=== PATIENT | male | born 1965 | race Caucasian/White ===

== ENCOUNTER → 2018-08-31 08:16 | Outpatient (CLI) | payer BC, SELFPAY ==
[2018-08-31 13:00] LABS: ALB/GLOB Ratio 0.9 RATIO (0.9-2.4); AST(SGOT) 20 U/L (15-37); Alanine Aminotransfer ALT/SGPT 37 U/L (16-61); Albumin, Serum 3.7 g/dL (3.2-5.0); Alkaline Phosphatase 65 U/L (45-117); Anion Gap 7 (5-15); BUN 11 mg/dL (7-18); BUN/Creat Ratio 9.8 RATIO (10-20); Calcium,Total 8.6 mg/dL (8.5-10.1); Chloride 104 mmol/L (98-107); Cholesterol 243 mg/dL (200); Creatinine, Serum 1.12 mg/dL (0.70-1.30); EST Glomerular Filtration Rate 73 mL/min (>60); Est Glom Filt Rate - Afr Amer 88 mL/min (>60); Globulin 3.9 g/dL (2.2-4.2); Glucose 117 mg/dL (74-106); High Density Lipoprotein 36 mg/dL; Potassium 3.6 mmol/L (3.5-5.1); Protein, Total 7.6 g/dL (6.4-8.2); Sodium Level 138 mmol/L (136-145); Triglycerides 179 mg/dL; Very Low Density Lipoprotein 36 mg/dL (5-40)
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
== END ==
PROVIDERS: Family Provider Family Medicine; PCP Family Medicine; Visit Provider Family Medicine
DX: B35.1 Tinea unguium (principal); Z82.49 Family history of ischemic heart disease and other diseases of the circulatory system
CPT/HCPCS: 36415; 80053; 80061

== ENCOUNTER → 2018-11-24 08:29 | Outpatient (CLI) | payer BC, SELFPAY ==
[2018-11-24 12:38] LABS: Cholesterol 151 mg/dL (200); High Density Lipoprotein 35 mg/dL; Triglycerides 112 mg/dL; Very Low Density Lipoprotein 22 mg/dL (5-40)
== END ==
LOC: LAB.FUTURE 09-07 06:01 → BFHLAB 09-15 09:13
PROVIDERS: Family Provider Family Medicine; PCP Family Medicine; Visit Provider Family Medicine
DX: E78.5 Hyperlipidemia, unspecified (principal)
CPT/HCPCS: 36415; 80061

== ENCOUNTER → 2019-09-08 08:26 | Outpatient (CLI) | payer BC, SELFPAY ==
[2018-04-01 16:09] VITALS: BMI 26.2
[2019-09-08 12:44] LABS: Absolute Lymphocyte Count 1.41 X10^3/uL (0.83-4.51); Absolute Neutrophil Count 2.9 X10^3/uL (2.0-7.7); Basophil# 0.03 X10^3/uL; Basophil% 0.6 % (0-1); Eosinophil# 0.18 X10^3/uL; Eosinophils% 3.6 % (0-5); Hematocrit 47.2 % (40-54); Hemoglobin 15.8 g/dL (13.0-16.5); Lymphocyte # 1.41 X10^3/ul (4.0); Mean Corp Hgb Conc 33.5 g/dL (32-36); Mean Corpuscular Hgb 31.9 pg (27.0-32.0); Mean Corpuscular Volume 95.2 fL (80-94); Mean Platelet Vol. 11.1 fl (6.2-12.0); Monocyte# 0.55 X10^3/uL; Monocyte% 10.9 % (0-10); NRBC Flagged by Analyzer 0 % (0-5); Neutrophil # 2.85 X10^3/uL (2.7-7.7); Neutrophil % 56.5 % (47-70); Platelet Count 230 K/mm3 (150-450); RBC Distribution Width CV 12.7 % (11.6-14.6); RBC Distribution Width SD 43.9 fl (35.1-43.9); Red Blood Count 4.96 M/mm3 (4.6-6.2)
[2019-09-08 13:21] LABS: AST(SGOT) 43 U/L (15-37); Alanine Aminotransfer ALT/SGPT 81 U/L (16-61); Albumin, Serum 3.8 g/dL (3.2-5.0); Alkaline Phosphatase 62 U/L (45-117); Anion Gap 3 (5-15); BUN 14 mg/dL (7-18); BUN/Creat Ratio 12.5 RATIO (10-20); Calcium,Total 8.5 mg/dL (8.5-10.1); Chloride 106 mmol/L (98-107); Cholesterol 156 mg/dL (200); Creatinine, Serum 1.12 mg/dL (0.70-1.30); EST Glomerular Filtration Rate 72 mL/min (>60); Est Glom Filt Rate - Afr Amer 88 mL/min (>60); Globulin 3.8 g/dL (2.2-4.2); Glucose 114 mg/dL (74-106); High Density Lipoprotein 34 mg/dL; Potassium 3.9 mmol/L (3.5-5.1); Protein, Total 7.6 g/dL (6.4-8.2); Sodium Level 139 mmol/L (136-145); Triglycerides 151 mg/dL; Very Low Density Lipoprotein 30 mg/dL (5-40)
== END ==
PROVIDERS: Family Provider Family Medicine; PCP Family Medicine; Visit Provider Family Medicine
DX: Z00.01 Encounter for general adult medical examination with abnormal findings (principal); E78.5 Hyperlipidemia, unspecified; K44.9 Diaphragmatic hernia without obstruction or gangrene; K21.0 Gastro-esophageal reflux disease with esophagitis
CPT/HCPCS: 36415; 80053; 80061; 85025

== ENCOUNTER → 2020-02-21 | Outpatient (CLI) | payer BC, SELFPAY ==
--- NOTE | 2020-02-21 09:27 | RAD_ITS ---
STUDY: X-RAY - ESOPHAGUS (BARIUM SWALLOW) WITH FLUOROSCOPY REASON FOR EXAM: Male, 55 years old. Dysphagia -- feels like food gets stuck mid to distal esophagus -- x 1 year TECHNIQUE: 21 view(s) of the esophagus were obtained following swallowing of barium. FLUOROSCOPY TIME (if supplied): (0:36) minutes/seconds COMPARISON: None. FINDINGS: There is no demonstrated esophageal foreign body. There is no demonstrated stricture or mucosal abnormality. Normal gastroesophageal junction, without a demonstrated hiatal hernia. The patient ingested a 12 mm tablet of barium without any difficulty. Normal visualized aortic arch and descending thoracic aorta. Normal visualized pulmonary parenchyma. Normal visualized osseous structures of the thorax. RAD/Esophagus Single Contrast IMPRESSION: Normal plain film x-ray examination (barium swallow) of the esophagus. Electronically Signed: Roland Burdick, at 10:11 EDT , Service support ,
== END | disposition home or self-care (01) ==
LOC: RAD 09:21
PROVIDERS: PCP Family Medicine; Referring Provider Family Medicine; Visit Provider Family Medicine
DX: R13.10 Dysphagia, unspecified (principal)
CPT/HCPCS: 74220

== ENCOUNTER → 2020-03-29 | Outpatient (CLI) | payer BC, SELFPAY | END | disposition home or self-care (01) | LOC: MTDU 17:35 | PROVIDERS: PCP Family Medicine; Referring Provider Internal Medicine Gastroenterology; Visit Provider Internal Medicine Gastroenterology | DX: Z11.59 Encounter for screening for other viral diseases (principal) | CPT/HCPCS: 87635; G2023; U0003 ==

== ENCOUNTER → 2022-02-21 | Outpatient (CLI) | payer BC, SELFPAY ==
[2022-02-23 18:06] LABS: Endomysial Antibody IgA Negative (Negative)
[2022-02-24 16:22] LABS: Immunoglobulin A 469 mg/dL (90-386); t-Transglutaminase IgA <2 U/mL (0-3)
== END | disposition home or self-care (01) ==
LOC: MTLAB 08:37
PROVIDERS: PCP Family Medicine; Referring Provider Family Medicine; Visit Provider Family Medicine
DX: K21.9 Gastro-esophageal reflux disease without esophagitis (principal)
CPT/HCPCS: 36415; 82784; 83516; 86255

== ENCOUNTER → 2022-08-27 | Outpatient (CLI) | payer BC, SELFPAY ==
--- NOTE | 2022-08-27 13:55 | ECHOD_ITS ---
Reason For Study: MURMUR Procedure This was a 2D Doppler, Color Flow transthoracic echocardiogram. Exam performed in department. Left Ventricle Normal LV size. Moderate eccentric left ventricular hypertrophy. Left ventricular systolic function is normal. The estimated ejection fraction is 65 %. Mid cavitary dynamic gradient 75 mm/Hg. No regional wall motion abnormalities noted. Right Ventricle Normal RV size. Normal systolic function. Atria Normal left atrium. Normal right atrium. Mitral Valve Normal mitral valve. Mild (1+) eccentric mitral valve insufficiency. Tricuspid Valve Normal tricuspid valve. Aortic Valve Trisinus/trileaflet aortic valve. Mild (1+) aortic valve insufficiency. Pulmonic Valve Normal pulmonic valve. Great Vessels Normal aortic root. The pulmonary artery is normal size. Normal inferior vena cava. Pericardium/Pleural No pericardial effusion. MMode/2D Measurements & Calculations LVIDd: 4.9 cm IVSd: 1.1 cm Ao root diam: 3.2 cm LVIDs: 2.7 cm LVPWd: 1.5 cm RVDd: 3.1 cm FS: 44.3 % LAV(MOD-bp): 67.1 ml LVAd ap4: 30.9 cm2 LVAd ap2: 31.9 cm2 LAV(MOD-bp) Indexed: 33.8 ml/m2 LVLd ap4: 10.1 cm LVLd ap2: 9.6 cm LAV(MOD-sp2): 58.3 ml EDV(MOD-sp4): 80.8 ml EDV(MOD-sp2): 87.1 ml LAV(MOD-sp4): 70.3 ml EDV(sp4-el): 80.7 ml EDV(sp2-el): 89.5 ml LVAs ap4: 17.0 cm2 LVAs ap2: 13.8 cm2 LVLs ap4: 8.8 cm LVLs ap2: 7.4 cm ESV(MOD-sp4): 32.4 ml ESV(MOD-sp2): 23.0 ml ESV(sp4-el): 27.8 ml ESV(sp2-el): 21.9 ml EF(MOD-sp4): 60.0 % EF(MOD-sp2): 73.6 % EF(sp4-el): 65.5 % SV(MOD-sp4): 48.5 ml SV(MOD-sp2): 64.1 ml SV(sp4-el): 52.9 ml LA dimension(2D): 3.8 cm LA A4 area: 22.0 cm2 RA A4 area: 15.1 cm2 Time Measurements MV dec time: 0.25 sec Doppler Measurements & Calculations MV E max peter: 81.9 cm/sec Lat Peak E' Peter: 11.0 cm/sec Med Peak E' Peter: 6.4 cm/sec MV A max peter: 70.9 cm/sec E/E' lat: 7.5 E/E' med: 12.8 MV E/A: 1.2 MV V2 max: 77.3 cm/sec MV dec slope: 331.9 cm/sec2 Ao V2 max: 246.4 cm/sec MV max P.4 mmHg Ao max P.4 mmHg MV V2 mean: 50.7 cm/sec Ao V2 mean: 160.3 cm/sec MV mean P.2 mmHg Ao mean P.4 mmHg MV V2 VTI: 25.7 cm Ao V2 VTI: 44.1 cm PA V2 max: 115.6 cm/sec PA V2 mean: 80.2 cm/sec ECHO/Echo Complete Interpretation Summary Normal LV size. Moderate eccentric left ventricular hypertrophy. Left ventricular systolic function is normal. The estimated ejection fraction is 65 %. Mid cavitary dynamic gradient 75 mm/Hg. Ordering Physician: Evangelina Abdul Referring Physician: Evangelina Abdul Performed By: Amanda Petty RCS
== END | disposition home or self-care (01) ==
LOC: CVS 13:54
PROVIDERS: PCP Family Medicine; Referring Provider Family Medicine; Visit Provider Family Medicine
DX: R01.1 Cardiac murmur, unspecified (principal)
CPT/HCPCS: 93306

== ENCOUNTER → 2024-01-21 | Outpatient (CLI) | payer OTHER, SELFPAY ==
--- NOTE | 2024-01-21 12:52 | ART_ITS ---
Reason For Study: ABNORMAL PVD SCREENING Left Segmental Pressures Left brachial= 154mmHg. Left posterior tibial artery = 179mmHg. Left dorsalis pedis artery = 168mmHg. The left posterior tibial artery waveforms are triphasic. The left dorsalis pedis waveforms are triphasic. Right Segmental Pressures Right brachial= 151mmHg. Right posterior tibial artery = 171mmHg. Right dorsalis pedis artery = 181mmHg. The right posterior tibial artery waveforms are triphasic. The right dorsalis pedis waveforms are triphasic. Indices The right resting ankle brachial index is 1.18. The right ankle brachial index by the posterior tibial artery is 1.11. The right ankle brachial index by the dorsalis pedis is 1.18. The left resting ankle brachial index is 1.16. The left ankle brachial index by the posterior tibial artery is 1.16. The left ankle brachial index by the dorsalis pedis is 1.09. VL/Ankle Brachial Index Interpretation Summary Right FAWAD 1.18, normal. Doppler/PVR waveforms of the right ankle normal at rest . Left FAWAD 1.16, normal. Doppler/PVR waveforms of the left ankle normal at rest. Ordering Physician: Evangelina Abdul Referring Physician: Evangelina Abdul Performed By: Sandra Taveras RVT, RDCS
== END | disposition home or self-care (01) ==
LOC: CVS 12:47
PROVIDERS: PCP Family Medicine; Referring Provider Family Medicine; Visit Provider Family Medicine
DX: I73.9 Peripheral vascular disease, unspecified (principal)
CPT/HCPCS: 93922

== ENCOUNTER → 2024-08-03 | Outpatient (CLI) | payer OTHER, SELFPAY ==
[2024-08-03 12:19] LABS: Absolute Lymphocyte Count 1.74 X10^3/uL (0.83-4.51); Absolute Neutrophil Count 2.6 X10^3/uL (2.0-7.7); Basophil# 0.05 X10^3/uL; Eosinophil# 0.12 X10^3/uL; Eosinophils% 2.3 % (0-5); Hematocrit 45.3 % (40-54); Hemoglobin 15.4 g/dL (13.0-16.5); Lymphocyte # 1.74 X10^3/ul (0.83-4.51); Lymphocyte % 33.1 % (19-41); Mean Corpuscular Hgb 32.1 pg (27.0-32.0); Mean Corpuscular Volume 94.4 fL (80-94); Mean Platelet Vol. 11.5 fl (6.2-12.0); Monocyte% 13.3 % (0-10); NRBC Flagged by Analyzer 0 % (0-5); Neutrophil # 2.62 X10^3/uL (2.7-7.7); Neutrophil % 49.9 % (47-70); Platelet Count 231 K/mm3 (150-450); RBC Distribution Width CV 12.8 % (11.6-14.6); RBC Distribution Width SD 44.4 fl (35.1-43.9); White Blood Count 5.3 K/mm3 (4.4-11.0)
[2024-08-03 12:53] LABS: AST(SGOT) 18 U/L (15-37); Alanine Aminotransfer ALT/SGPT 25 U/L (16-61); Albumin, Serum 3.6 g/dL (3.2-5.0); Alkaline Phosphatase 61 U/L (45-117); Anion Gap 6 (5-15); BUN 14 mg/dL (7-18); BUN/Creat Ratio 13.6 RATIO (10-20); Calcium,Total 8.9 mg/dL (8.5-10.1); Chloride 107 mmol/L (98-107); Cholesterol 238 mg/dL (200); Creatinine, Serum 1.03 mg/dL (0.70-1.30); EST Glomerular Filtration Rate 78 mL/min (>60); Est Glom Filt Rate - Afr Amer 95 mL/min (>60); Globulin 3.5 g/dL (2.2-4.2); Glucose 120 mg/dL (74-106); High Density Lipoprotein 37 mg/dL; PSA,Total - Annual Screen 1.48 ng/mL (0.00-4.00); Protein, Total 7.1 g/dL (6.4-8.2); Sodium Level 140 mmol/L (136-145); Triglycerides 184 mg/dL; Very Low Density Lipoprotein 37 mg/dL (5-40)
== END | disposition home or self-care (01) ==
LOC: BFHLAB 08:14
PROVIDERS: PCP Family Medicine; Referring Provider Family Medicine; Visit Provider Family Medicine
DX: Z00.00 Encounter for general adult medical examination without abnormal findings (principal); K21.9 Gastro-esophageal reflux disease without esophagitis; E78.5 Hyperlipidemia, unspecified
CPT/HCPCS: 36415; 80053; 80061; 84153; 85025; G0103

== ENCOUNTER → 2025-05-25 | Outpatient (CLI) | payer OTHER, SELFPAY ==
[2025-05-25 10:40] LABS: Hematocrit 44.3 % (40-54); Hemoglobin 15.2 g/dL (13.0-16.5); Immature Granulocytes Count 0.020 X10^3/uL (0.0-0.0); Mean Corp Hgb Conc 34.3 g/dL (32-36); Mean Corpuscular Volume 91.5 fL (80-94); Mean Platelet Vol. 11.2 fl (6.2-12.0); NRBC Flagged by Analyzer 0 % (0-5); Platelet Count 221 K/mm3 (150-450); RBC Distribution Width CV 12.5 % (11.6-14.6); RBC Distribution Width SD 41.3 fl (35.1-43.9); Red Blood Count 4.84 M/mm3 (4.6-6.2); White Blood Count 5.4 K/mm3 (4.4-11.0)
[2025-05-25 11:39] LABS: AST(SGOT) 25 U/L (<=37); Alanine Aminotransfer ALT/SGPT 29 U/L (<=46); Albumin, Serum 4.1 g/dL (3.4-4.8); Alkaline Phosphatase 62 U/L (40-129); Anion Gap 11 (5-15); BUN 17 mg/dL (4-19); BUN/Creat Ratio 16.4 RATIO (10-20); Calcium,Total 9.3 mg/dL (7.6-11.0); Carbon Dioxide 23.7 mmol/L (21.0-32.0); Chloride 105 mmol/L (98-108); Cholesterol 166 mg/dL (<=200); Globulin 3.0 g/dL (2.2-4.2); Glucose 117 mg/dL (70-99); Low Density Lipoprotein Calc. 109 mg/dL; Potassium 3.9 mmol/L (3.3-5.1); Triglycerides 93 mg/dL; Very Low Density Lipoprotein 19 mg/dL (5-40); cholesterol:hdl ratio screen 4.30
== END | disposition home or self-care (01) ==
LOC: MTLAB 08:30
PROVIDERS: PCP Family Medicine; Referring Provider Family Medicine; Visit Provider Family Medicine
DX: Z00.00 Encounter for general adult medical examination without abnormal findings (principal); K21.9 Gastro-esophageal reflux disease without esophagitis; E78.5 Hyperlipidemia, unspecified
CPT/HCPCS: 36415; 80053; 80061; 85025

== ENCOUNTER → 2025-08-15 | Outpatient (CLI) | payer OTHER, SELFPAY ==
[2025-08-15 14:20] LABS: AST(SGOT) 31 U/L (<=37); Alanine Aminotransfer ALT/SGPT 44 U/L (<=46); Albumin, Serum 4.1 g/dL (3.4-4.8); Alkaline Phosphatase 72 U/L (40-129); Anion Gap 9 (5-15); BUN 7 mg/dL (4-19); BUN/Creat Ratio 7.6 RATIO (10-20); Calcium,Total 8.9 mg/dL (7.6-11.0); Carbon Dioxide 27.4 mmol/L (21.0-32.0); Chloride 104 mmol/L (98-108); Cholesterol 141 mg/dL (<=200); Globulin 3.0 g/dL (2.2-4.2); Glucose 103 mg/dL (70-99); Low Density Lipoprotein Calc. 87 mg/dL; Potassium 4.1 mmol/L (3.3-5.1); Triglycerides 101 mg/dL; Very Low Density Lipoprotein 20 mg/dL (5-40); cholesterol:hdl ratio screen 4.06
== END | disposition home or self-care (01) ==
LOC: LAB 13:10
PROVIDERS: PCP Family Medicine; Referring Provider Internal Medicine Cardiovascular Disease; Visit Provider Internal Medicine Cardiovascular Disease
DX: R93.89 Abnormal findings on diagnostic imaging of other specified body structures (principal); I42.2 Other hypertrophic cardiomyopathy; I25.10 Atherosclerotic heart disease of native coronary artery without angina pectoris; E78.5 Hyperlipidemia, unspecified; K21.9 Gastro-esophageal reflux disease without esophagitis
CPT/HCPCS: 36415; 80053; 80061; 84443

== ENCOUNTER → 2025-09-07 | Outpatient (CLI) | payer OTHER, SELFPAY ==
--- NOTE | 2025-09-07 06:26 | ECHOD_ITS ---
Reason For Study Reason For Study: Abn EKG Procedure This was a 2D Doppler, Color Flow transthoracic echocardiogram. Exam performed in department. Left Ventricle Normal LV size. Moderate concentric left ventricular hypertrophy. Left ventricular systolic function is normal. The left ventricular ejection fraction is 55 %. Resting LV gradient 16 mmHg. Valsalva LV gradient 75 mmHg. The global longitudinal strain = -14.3% (abnormal). Apical sparing pattern on LV Strain. No regional wall motion abnormalities noted. Right Ventricle Normal RV size. Normal systolic function. Atria Normal left atrium. Normal right atrium. Mitral Valve Normal mitral valve. Chordal systolic anterior motion of the mitral valve. Mild (1+) mitral valve insufficiency. Tricuspid Valve Normal tricuspid valve. Trivial tricuspid valve insufficiency. Aortic Valve Trisinus/trileaflet aortic valve. Premature systolic leaflet closure on m-mode. Trivial aortic valve insufficiency. Pulmonic Valve Normal pulmonic valve. Great Vessels Normal sized aortic root. Pericardium/Pleural No pericardial effusion. MMode/2D Measurements & Calculations LVIDd: 4.4 cm IVSd: 1.4 cm Ao root diam: 3.4 cm LVIDs: 2.3 cm LVPWd: 1.4 cm RVDd: 3.5 cm FS: 47.0 % LAV(MOD-bp): 42.7 ml LVAd ap4: 29.4 cm2 LVAd ap2: 28.9 cm2 LAV(MOD-bp) Indexed: 20.7 ml/m2 LVLd ap4: 9.6 cm LVLd ap2: 9.2 cm LAV(MOD-sp2): 45.0 ml EDV(MOD-sp4): 76.3 ml EDV(MOD-sp2): 78.8 ml LAV(MOD-sp4): 37.4 ml EDV(sp4-el): 76.7 ml EDV(sp2-el): 76.7 ml LVAs ap4: 18.5 cm2 LVAs ap2: 18.1 cm2 LVLs ap4: 8.3 cm LVLs ap2: 8.6 cm ESV(MOD-sp4): 36.1 ml ESV(MOD-sp2): 34.9 ml ESV(sp4-el): 34.9 ml ESV(sp2-el): 32.3 ml EF(MOD-sp4): 52.7 % EF(MOD-sp2): 55.8 % EF(sp4-el): 54.5 % SV(MOD-sp4): 40.2 ml SV(MOD-sp2): 43.9 ml EDV(MOD-bp): 78.8 ml SI(MOD-sp4): 19.5 ml/m2 SI(MOD-sp2): 21.3 ml/m2 ESV(MOD-bp): 35.2 ml EF(MOD-bp): 55.4 % SV(sp4-el): 41.8 ml LA dimension(2D): 4.0 cm LA A4 area: 15.6 cm2 RA A4 area: 15.0 cm2 TAPSE: 1.9 cm Time Measurements MV dec time: 0.23 sec Doppler Measurements & Calculations MV E max peter: 74.8 cm/sec Lat Peak E' Peter: 6.7 cm/sec Med Peak E' Peter: 6.2 cm/sec MV A max peter: 90.2 cm/sec E/E' lat: 11.2 E/E' med: 12.1 MV E/A: 0.83 Ao V2 max: 193.3 cm/sec PA V2 max: 112.5 cm/sec MV dec slope: 326.6 cm/sec2 Ao max P.9 mmHg Ao V2 mean: 145.8 cm/sec Ao mean P.3 mmHg Ao V2 VTI: 37.5 cm ECHO/Echo Complete Interpretation Summary The left ventricular ejection fraction is 55 %. Moderate concentric left ventricular hypertrophy. Valsalva LV gradient 75 mmHg. Chordal systolic anterior motion of the mitral valve. Mild (1+) mitral valve insufficiency. Recommend cardiac MRI for further evaluation for HOCM. Ordering Physician: Heidi Chery Referring Physician: Evangelina Abdul Performed By: Isabel Lara RDCS
--- OUTSIDE RECORDS SUMMARY | 2025-09-07 06:26 | XMS RPT_ITS | CCD ---
Author Organization [facility] Care Team Providers Care Title Search Manager Name Role Phone RENEA CARCAMO Unavailable Unavailable RACHEL BENTON Unavailable Unavailable Dr. Evangelina Abdul Primary Care Provider [phone] Evangelina Abdul Referring Provider [phone] Dr. Patel Liriano Attending Provider [phone] Evangelina Abdul MD Primary Care Provider Dr. Evangelina Abdul MD Attending Provider Dr. Evangelina Abdul MD Referring Provider Evangelina Abdul Attending Unavailable Evangelina Abdul Primary Care Unavailable Evangelina Abdul Referring Unavailable Evangelina Abdul Referring Unavailable Evangelina Abdul Attending Unavailable Evangelina Abdul Primary Care Unavailable Evangelina Abdul Attending Unavailable Evangelina Abdul Primary Care Unavailable Evangelina Abdul Referring Unavailable Evangelina Abdul Attending Unavailable Evangelina Abdul Primary Care Unavailable Medications Current Medications Medication Drug Class(es) Dates Sig (Normalized) Sig (Original) pantoprazole 40 mg delayed release oral tablet (2 sources) Proton Pump Inhibitor Start: 08-16-2022 take 1 tablet by mouth once daily Pantoprazole (Protonix) 40 mg tablet,delayed release (DR/EC) Active 40 mg PO DAILY 30 August 16, 2022 1:00am Completed/Discontinued Medications Medication Drug Class(es) Dates Sig (Normalized) Sig (Original) amoxicillin 875 mg oral tablet (5 sources) Penicillin-class Antibacterial Start: 08-16-2022 End: 08-26-2022 take 1 tablet by mouth twice daily Amoxicillin 875 mg tablet Discontinued 875 mg PO TWICE A DAY 20 10 0 August 16, 2022 12:21pm August 25, 2022 1:00am August 26, 2022 1:04am Start: 03-31-2021 End: 04-10-2021 take 1 tablet by mouth twice daily Amoxicillin 875 mg tablet Discontinued 875 mg PO TWICE A DAY 20 10 0 March 31, 2021 12:00am April 09, 2021 12:00am April 10, 2021 12:01am cephalexin 500 mg oral capsule (3 sources) Cephalosporin Antibacterial Start: 04-01-2018 End: 08-16-2022 take 1 capsule by mouth three times daily Cephalexin 500 mg capsule Discontinued 500 mg PO THREE TIMES A DAY 30 0 April 01, 2018 12:00am August 16, 2022 12:16pm space evenly during waking hours ofloxacin 3 mg/ml otic solution (3 sources) Quinolone Antimicrobial Start: 03-31-2021 End: 04-14-2021 Ofloxacin 0.3 % drops Discontinued 10 NMA OTIC TWICE A DAY 15 14 March 31, 2021 12:00am April 13, 2021 12:00am April 14, 2021 12:01am instill 10 drops in right ear BID for 14 days Start: 03-31-2021 End: 04-14-[address] P OTIC TWICE A DAY 15 14 March 31, 2021 10:17am April 14, 2021 12:01am instill 10 drops in right ear BID for 14 days Problems Active Problems Problem Classification Problem Date Documented Da te Episodic/Chronic Disorders of lipid metabolism (1 source) Hyperlipidemia, unspecified; Translations: [Hyperlipidemia, unspecified] Onset: 06-12-2025 Chronic Otitis media and related conditions (5 sources) Otitis media; Translations: [Otitis media, unspecified, right ear] 08-16-2022 Episodic Residual codes; unclassified (1 source) Family history of ischemic heart disease and other diseases of the circulatory system; Translations: [Family history of ischemic heart disease and other diseases of the circulatory system] Onset: 06-12-2025 Episodic Skin and subcutaneous tissue infections (3 sources) Cellulitis of upper arm; Translations: [Cellulitis of right upper limb] 04-01-2018 Episodic Past or Other Problems Problem Classification Problem Date Documented Da te Episodic/Chronic Neoplasms of unspecified nature or uncertain behavior (2 sources) Neoplasm of uncertain behavior, unspecified; Translations: [Neoplasm of uncertain behavior, unspecified] Onset: 09-29-2017 Episodic Results Test Name Value Interpretation Reference Range Facility Limited Chest CT Cardiac Onl yon 06-12-[address] Cardiac Only [facility] Imaging Services [address] [place], [place] [id number] Limited Chest CT Cardiac Only MR#: [id number] Acct: [id number] Name: NICOLASA MORRISSEY Rep #: [id number] : 1965 M 60 From: Roland ferraro MD PCP: Dr. Evangelina Abdul MD Status: REG REF Study: Limited Chest CT Cardiac Only Date of Exam: Exam# [id number] Ordering Dr: Evangelina Abdul MD PROCEDURE: LIMITED CHEST CT CARDIAC ONLY 06/12/2025 REASON FOR EXAM: FAMILY HX CAD, HYPERLIPIDEMIA TECHNIQUE: Procedure Code: CTCCTACHLIM Modality: CT Procedure: LIMITED CHEST CT CARDIAC ONLY CONTRAST: None. One or more dose reduction techniques were used (e.g., Automated exposure control, adjustment of the mA and/or kV according to patient size, use of iterative reconstruction technique). RADIATION DOSE SUMMARY: CTDlvol: 12.19 mGy DLP: 243.79 mGycm COMPARISON: None FINDINGS: Coronary artery calcification. The heart is nonenlarged. Calcified left hilar lymph node. The lungs are clear. CT/Limited Chest CT Cardiac Only IMPRESSION: Coronary artery calcification. Reading Location: [place] [address] CC: Dr. Evangelina Abdul MD Health And Safety Technician: Signed Normal [facility] Absolute lymphocyte countOrd ered By: Evangelina Abdul on 05-25-2025 Lymphocytes Auto (Unsp spec) [#/Vol] 1.43 10*3/uL 0.83-4.51 [facility] Absolute neutrophil countOrd ered By: Evangelina Abdul on 09-04-2025 Neutrophils (Bld) [#/Vol] 3.1 10*3/uL 2.0-7.7 [facility] Anion gap in Serum or Plasma Ordered By: Evangelina Abdul on 05-25-2025 Anion gap [Moles/Vol] 11 mmol/L 5- [facility] Automated lymphocyte count a s percentage of total leukocytesOrdered By: Evangelina Abdul on 05-25-2025 Lymphocytes/100 WBC Auto (Unsp spec) 26.7 % - [facility] BUN/creatinine ratioOrdered By: Evangelina Chantell on 05-25-2025 Urea nitrogen/Creatinine [Mass ratio] 16.4 mg/mg 10- [facility] Basophil percentageOrdered B y: Evangelina Abdul on 05-25-2025 Basophils/100 WBC (Bld) 0.9 % 0-1 [facility] Bilirubin, totalOrdered By: Evangelina Abdul on 05-25-2025 Bilirubin [Mass/Vol] 0.60 mg/dL 0.00-1.30 [facility] CBC W/Diff, Automatedon Absolute Lymph 1.43 X10 3/uL Normal 0.83-4.51 [facility] Comment on above: Performed By: #### L 500.4100, L100.0100, L500.4050 #### [facility] [address] [place], [address] Absolute Neut 3.1 X10 3/uL Normal 2.0-7.7 [facility] Comment on above: Performed By: #### L 500.4100, L100.0100, L500.4050 #### [facility] [address] [place], [address] Basophils/100 WBC (Bld) 0.9 % Normal 0-1 [facility] Comment on above: Performed By: #### L 500.4100, L100.0100, L500.4050 #### [facility] [address] [place], [address] Eosinophils/100 WBC (Bld) 2.4 % Normal 0-5 [facility] Comment on above: Performed By: #### L 500.4100, L100.0100, L500.4050 #### [facility] [address] [place], [address] Erythrocyte distribution width (RBC) [Ratio] 12.5 % Normal 11.6-14.6 [facility] Comment on above: Performed By: #### L 500.4100, L100.0100, L500.4050 #### [facility] [address] [place], [address] Hematocrit (Bld) [Volume fraction] 44.3 % Normal 40-54 [facility] Comment on above: Performed By: #### L 500.4100, L100.0100, L500.4050 #### [facility] [address] [place], [address] Hemoglobin (Bld) [Mass/Vol] 15.2 g/dL Normal 13.0-16.5 [facility] Comment on above: Performed By: #### L 500.4100, L100.0100, L500.4050 #### [facility] [address] [place], [address] IG% 0.400 Normal 0.0-0.9 [facility] Comment on above: Result Comment: IG% - Immature Granulocytes (promyelocytes, myelocytes and metamyelocytes) > 1% indicates that a LEFT SHIFT is Present. Performed By: #### L 500.4100, L100.0100, L500.4050 #### [facility] [address] [place], [address] Lymphocytes/100 WBC (Bld) 26.7 % Normal 19-41 [facility] Comment on above: Performed By: #### L 500.4100, L100.0100, L500.4050 #### [facility] [address] [place], [address] MCH (RBC) [Entitic mass] 31.4 pg Normal 27.0-32.0 [facility] Comment on above: Performed By: #### L 500.4100, L100.0100, L500.4050 #### [facility] [address] [place], [address] MCHC (RBC) [Mass/Vol] 34.3 g/dL Normal 32-36 [facility] Comment on above: Performed By: #### L 500.4100, L100.0100, L500.4050 #### [facility] [address] [place], [address] MCV (RBC) [Entitic vol] 91.5 fL Normal 80-94 [facility] Comment on above: Performed By: #### L 500.4100, L100.0100, L500.4050 #### [facility] [address] [place], [address] Monocytes/100 WBC (Bld) 11.6 % High 0-10 [facility] Comment on above: Performed By: #### L 500.4100, L100.0100, L500.4050 #### [facility] [address] [place], [address] Neutrophils/100 WBC (Bld) 58.0 % Normal 47-70 [facility] Comment on above: Performed By: #### L 500.4100, L100.0100, L500.4050 #### [facility] [address] [place], [address] Nucleated RBC (Bld) [#/Vol] 0 10*3/uL Normal 0-5 [facility] Comment on above: Performed By: #### L 500.4100, L100.0100, L500.4050 #### [facility] [address] [place], [address] Platelet mean volume (Bld) [Entitic vol] 11.2 fL Normal 6.2-12.0 [facility] Comment on above: Performed By: #### L 500.4100, L100.0100, L500.4050 #### [facility] [address] [place], [address] Platelets (Bld) [#/Vol] 221 10*3/uL Normal 150-450 [facility] Comment on above: Performed By: #### L 500.4100, L100.0100, L500.4050 #### [facility] [address] [place], [address] RBC (Bld) [#/Vol] 4.84 10*6/uL Normal 4.6-6.[address] [facility] Comment on above: Performed By: #### L 500.4100, L100.0100, L500.4050 #### [facility] [address] [place], [address] RDW SD 41.3 fl Normal 35.1-43.9 [facility] Comment on above: Performed By: #### L 500.4100, L100.0100, L500.4050 #### [facility] [address] [place], [address] WBC (Bld) [#/Vol] 5.4 10*3/uL Normal 4.4-11.0 [facility] Comment on above: Performed By: #### L 500.4100, L100.0100, L500.4050 #### [facility] [address] [place], [address] Calculated very low density lipoprotein (VLDL) cholesterol measurementOrdered By: Evangelina Abdul on 05-25-2025 Calculated very low density lipoprotein (VLDL) cholesterol measurement 19 mg/dL 5-40 [facility] Carbon dioxide, total [Moles /volume] in Central venous bloodOrdered By: Evangelina Abdul on 05-25-2025 CO2 [Moles/Vol] 23.7 mmol/L 21.0-32.0 [facility] Chloride assayOrdered By: Quinton kirkpatrick Chantell on 05-25-2025 Chloride [Moles/Vol] 105 mmol/L 98-108 [facility] Comprehensive Metabolic Prof ilon 05-25-2025 Albumin [Mass/Vol] 4.1 g/dL Normal 3.4-4.8 [facility] Comment on above: Performed By: #### L 500.4100, L100.0100, L500.4050 #### [facility] [address] [place], [address] Albumin/Globulin [Mass ratio] 1.4 {ratio} Normal 0.9-2.4 [facility] Comment on above: Performed By: #### L 500.4100, L100.0100, L500.4050 #### [facility] [address] [place], [address] ALK PHOS 62 U/L Normal 40-129 [facility] Comment on above: Performed By: #### L 500.4100, L100.0100, L500.4050 #### [facility] [address] [place], [address] ALT [Catalytic activity/Vol] 29 U/L Normal <=46 [facility] Comment on above: Performed By: #### L 500.4100, L100.0100, L500.4050 #### [facility] [address] [place], [address] AST [Catalytic activity/Vol] 25 U/L Normal <=37 [facility] Comment on above: Performed By: #### L 500.4100, L100.0100, L500.4050 #### [facility] [address] [place], [address] Bilirubin [Mass/Vol] 0.60 mg/dL Normal 0.00-1.30 [facility] Comment on above: Performed By: #### L 500.4100, L100.0100, L500.4050 #### [facility] [address] [place], [address] BUN/CRE 16.4 RATIO Normal 10-20 [facility] Comment on above: Performed By: #### L 500.4100, L100.0100, L500.4050 #### [facility] [address] [place], [address] Calcium [Mass/Vol] 9.3 mg/dL Normal 7.6-11.0 [facility] Comment on above: Performed By: #### L 500.4100, L100.0100, L500.4050 #### [facility] [address] [place], [address] Chloride [Moles/Vol] 105 mmol/L Normal 98-108 [facility] Comment on above: Performed By: #### L 500.4100, L100.0100, L500.4050 #### [facility] [address] [place], [address] CO2 [Moles/Vol] 23.7 mmol/L Normal 21.0-32.0 [facility] Comment on above: Performed By: #### L 500.4100, L100.0100, L500.4050 #### [facility] [address] [place], [address] Creatinine [Mass/Vol] 1.01 mg/dL Normal 0.70-1.20 [facility] Comment on above: Performed By: #### L 500.4100, L100.0100, L500.4050 #### [facility] [address] [place], [address] GAP 11 Normal 5-15 [facility] Comment on above: Performed By: #### L 500.4100, L100.0100, L500.4050 #### [facility] [address] [place], [address] GFR/1.73 sq M.predicted among non-blacks MDRD (S/P/Bld) [Vol rate/Area] 85 mL/min/{1.73_m2} Normal >60 [facility] Comment on above: Result Comment: mL/m in/1.73m2 CKD-EPI Creatinine Equation (2020) Performed By: #### L 500.4100, L100.0100, L500.4050 #### [facility] [address] [place], [address] Globulin (S) [Mass/Vol] 3.0 g/dL Normal 2.2-4.2 [facility] Comment on above: Performed By: #### L 500.4100, L100.0100, L500.4050 #### [facility] [address] [place], [address] Glucose [Mass/Vol] 117 mg/dL High 70-99 [facility] Comment on above: Performed By: #### L 500.4100, L100.0100, L500.4050 #### [facility] [address] [place], [address] Potassium [Moles/Vol] 3.9 mmol/L Normal 3.3-5.1 [facility] Comment on above: Performed By: #### L 500.4100, L100.0100, L500.4050 #### [facility] [address] [place], [address] Sodium [Moles/Vol] 140 mmol/L Normal 133-145 [facility] Comment on above: Performed By: #### L 500.4100, L100.0100, L500.4050 #### [facility] [address] [place], [address] T PROT 7.2 g/dL Normal 5.9-8.4 [facility] Comment on above: Performed By: #### L 500.4100, L100.0100, L500.4050 #### [facility] [address] [place], [address] Urea nitrogen [Mass/Vol] 17 mg/dL Normal 4-19 [facility] Comment on above: Performed By: #### L 500.4100, L100.0100, L500.4050 #### [facility] [address] [place], [address] Eosinophil percentageOrdered By: Evangelina Abdul on 05-25-2025 Eosinophils/100 WBC (Bld) 2.4 % 0-5 [facility] Erythrocyte distribution wid th ratioOrdered By: Evangelina Abdul on 05-25-2025 Erythrocyte distribution width (RBC) [Ratio] 12.5 % 11.6-14.6 [facility] Erythrocyte distribution wid th standard deviationOrdered By: Evangelina Abdul on 05-25-2025 Erythrocyte distribution width (RBC) [Ratio] 41.3 fl 35.1-43.9 [facility] Glomerular filtration rate ( GFR) estimation/1.73 sq m using serum, plasma, or whole bOrdered By: Evangelina Abdul on 05-25-2025 GFR/1.73 sq M.predicted among non-blacks MDRD (S/P/Bld) [Vol rate/Area] 85 mL/min/{1.73_m2} >60 [facility] Comment on above: mL/min/1.73m2 CKD-EP I Creatinine Equation (2020) Hematocrit Auto (Bld) [Volum e fraction]Ordered By: Evangelina Abdul on 05-25-2025 Hematocrit (Bld) [Volume fraction] 44.3 % 40-54 [facility] Hemoglobin measurementOrdere d By: Evaneglina Abdul on 05-25-2025 Hemoglobin (Bld) [Mass/Vol] 15.2 g/dL 13.0-16.5 [facility] Immature granulocytes/100 WB C Auto (Bld)Ordered By: Evangelina Abdul on 05-25-2025 Immature granulocytes/100 WBC (Bld) 0.400 % 0.0-0.9 [facility] Comment on above: IG% - Immature Granu locytes (promyelocytes, myelocytes and metamyelocytes) > 1% indicates that a LEFT SHIFT is Present. LDL calc ser/plasOrdered By: Evangelina Abdul on 05-25-2025 Cholesterol in LDL [Mass/Vol] 109 mg/dL [facility] Comment on above: Rcaafgfcvu=579-513 m g/dL & Higher Jplj=331 mg/dL or greaterFriedwald Equation for LDL-C Laboratory - Chemistry and C hemistry - challengeOrdered By: Evangelina Abdul on 05-25-2025 AST [Catalytic activity/Vol] 25 U/L <38 [facility] Lipid Profileon 05-25-2025 CHOL:HDL 4.30 Normal [facility] Comment on above: Performed By: #### L 500.4100, L100.0100, L500.4050 #### [facility] [address] [place], [address] Cholesterol [Mass/Vol] 166 mg/dL Normal <=200 [facility] Comment on above: Result Comment: Chol esterol level, Desirable <200 mg/dL Borderline high cholesterol 200-239 mg/dL High cholesterol >=240 mg/dL Recommendations of the NCEP Adult Treatment Panel for the following risk-cutoff thresholds for the [place] population. Performed By: #### L 500.4100, L100.0100, L500.4050 #### [facility] [address] [place], [address] Cholesterol in HDL [Mass/Vol] 39 mg/dL Low [facility] Comment on above: Result Comment: Radha onal Cholesterol Education Program (NCEP) guidelines: <40 mg/dL: Low HDL-cholesterol (major risk factor for CHD) >= 60 mg/dL: High HDL-cholesterol (negative risk factor for CHD) HDL-cholesterol is affected by a number of factors, e.g. smoking, exercise, hormones, sex and age. Performed By: #### L 500.4100, L100.0100, L500.4050 #### [facility] [address] [place], [address] Cholesterol in LDL [Mass/Vol] 109 mg/dL Normal [facility] Comment on above: Result Comment: Bord cxtiao=762-129 mg/dL Higher Afgx=364 mg/dL or greater Friedwald Equation for LDL-C Performed By: #### L 500.4100, L100.0100, L500.4050 #### [facility] [address] [place], [address] Cholesterol in VLDL [Mass/Vol] 19 mg/dL Normal 5-40 [facility] Comment on above: Performed By: #### L 500.4100, L100.0100, L500.4050 #### [facility] [address] [place], [address] Triglyceride [Mass/Vol] 93 mg/dL Normal [facility] Comment on above: Result Comment: The drugs N-Acetylcysteine and Metamizole may falsely depress this assay. Normal range: <150 mg/dL Borderline High: 150-199 mg/dL High: 200-499 mg/dL Very High: >500 mg/dL Performed By: #### L 500.4100, L100.0100, L500.4050 #### [facility] [address] [place], [address] MCV (mean corpuscular volume ) determinationOrdered By: Evangelina Abdul on 05-25-2025 MCV (RBC) [Entitic vol] 91.5 fL 80-94 [facility] Mean corpuscular hemoglobin (MCH) determinationOrdered By: Evangelina Abdul on 05-25-2025 MCH (RBC) [Entitic mass] 31.4 pg 27.0-32.0 [facility] Mean corpuscular hemoglobin concentration (MCHC) determinationOrdered By: Evangelina Abdul on 05-25-2025 MCHC (RBC) [Mass/Vol] 34.3 g/dL 32-36 [facility] Mean platelet volume determi nationOrdered By: Evangelina Abdul on 05-25-2025 Platelet mean volume (Bld) [Entitic vol] 11.2 fL 6.2-12.0 [facility] Monocyte percentageOrdered B y: Evangelina Abdul on 05-25-2025 Monocytes/100 WBC (Bld) 11.6 % High 0-10 [facility] Neutrophil percentageOrdered By: Evangelina Abdul on 05-25-2025 Neutrophils/100 WBC (Bld) 58.0 % 47-70 [facility] Nucleated red blood cell per centageOrdered By: Evangelina Abdul on 05-25-2025 Nucleated RBC/100 WBC (Bld) [Ratio] 0 % 0-5 [facility] Platelet countOrdered By: Quinton Abdul on 05-25-2025 Platelets (Bld) [#/Vol] 221 10*3/uL 150-450 [facility] Potassium measurement (mass/ volume)Ordered By: Evangelina Abdul on 05-25-2025 Potassium (Unsp spec) [Mass/Vol] 3.9 mmol/L 3.3-5.1 [facility] RBC Auto (Bld) [#/Vol]Ordere d By: Evangelina Abdul on 05-25-2025 RBC (Bld) [#/Vol] 4.84 10*6/uL 4.6-6.[address] [facility] Screening total cholesterol/ high density lipoprotein (HDL) cholesterol ratioOrdered By: Evangelina Abdul on 05-25-2025 Cholesterol.total/Shahla sterol in HDL [Mass ratio] 4.30 {ratio} [facility] Serum creatinine measurement (mass/volume)Ordered By: Evangelina Abdul on 05-25-2025 Creatinine [Mass/Vol] 1.01 mg/dL 0.70-1.20 [facility] Serum globulin measurementOr dered By: Evangelina Abdul on 05-25-2025 Globulin (S) [Mass/Vol] 3.0 g/dL 2.2-4.2 [facility] Serum glucose measurement (m ass/volume)Ordered By: Evangelina Abdul on 05-25-2025 Glucose [Mass/Vol] 117 mg/dL High 70-99 [facility] Serum or plasma alanine eng otransferase (ALT) measurementOrdered By: Evangelina Abdul on 05-25-2025 ALT [Catalytic activity/Vol] 29 U/L <47 [facility] Serum or plasma albumin kameron urement (mass/volume)Ordered By: Evangelina Abdul on 05-25-2025 Albumin [Mass/Vol] 4.1 g/dL 3.4-4.8 [facility] Serum or plasma albumin/glob ulin mass ratioOrdered By: Evangelina Chantell on 05-25-2025 Albumin/Globulin [Mass ratio] 1.4 {ratio} 0.9-2.4 [facility] Serum or plasma alkaline perlita sphatase measurementOrdered By: Evangelina Abdul on 05-25-2025 ALP [Catalytic activity/Vol] 62 U/L 40-129 [facility] Serum or plasma calcium kameron urement (mass/volume)Ordered By: Evangelina Abdul on 05-25-2025 Calcium [Mass/Vol] 9.3 mg/dL 7.6-11.0 [facility] Serum or plasma cholesterol in HDL measurement (mass/volume)Ordered By: Evangelina Abdul on 05-25-2025 Cholesterol in HDL [Mass/Vol] 39 mg/dL Low >40 [facility] Comment on above: National Cholesterol Education Program (NCEP) guidelines:<40 mg/dL: Low HDL-cholesterol (major risk factor for CHD)>= 60 mg/dL: High HDL-cholesterol (negative risk factor for CHD)HDL-cholesterol is affected by a number of factors, e.g. smoking, exercise, hormones, sex and age. Serum or plasma cholesterol measurement (mass/volume)Ordered By: Evangelina Abdul on 05-25-2025 Cholesterol [Mass/Vol] 166 mg/dL <201 [facility] Comment on above: Cholesterol level, D esirable <200 mg/dLBorderline high cholesterol 200-239 mg/dLHigh cholesterol >=240 mg/dLRecommendations of the NCEP Adult Treatment Panel for the following risk-cutoff thresholds for the [place] population. Serum or plasma urea nitroge n measurement (mass/volume)Ordered By: Evangelina Abdul on 05-25-2025 Urea nitrogen [Mass/Vol] 17 mg/dL 4-19 [facility] Sodium levelOrdered By: Sarah Abdul on 05-25-2025 Sodium [Moles/Vol] 140 mmol/L 133-145 [facility] Total proteinOrdered By: Boyd Abdul on 05-25-2025 Protein [Mass/Vol] 7.2 g/dL 5.9-8.4 [facility] Triglycerides measurementOrd ered By: Evangelina Abdul on 05-25-2025 Triglyceride [Mass/Vol] 93 mg/dL <199 [facility] Comment on above: The drugs N-Acetylcy steine and Metamizole may falsely depress this assay. Normal range: <150 mg/dLBorderline High: 150-199 mg/dLHigh: 200-499 mg/dLVery High: >500 mg/dL White blood cell (WBC) count Ordered By: Evangelina Abdul on 05-25-2025 WBC (Bld) [#/Vol] 5.4 10*3/uL 4.4-11.0 [facility] CBC W/Diff, Automatedon 11-1 Absolute Lymph 1.74 X10 3/uL Normal 0.83-4.51 [facility] Comment on above: Performed By: #### L 500.4050, L100.0100, L500.4100, L501.9910 #### [facility] [address] [place], [address] Absolute Neut 2.6 X10 3/uL Normal 2.0-7.7 [facility] Comment on above: Performed By: #### L 500.4050, L100.0100, L500.4100, L501.9910 #### [facility] [address] [place], [address] Basophils/100 WBC (Bld) 1.0 % Normal 0-1 [facility] Comment on above: Performed By: #### L 500.4050, L100.0100, L500.4100, L501.9910 #### [facility] [address] [place], [address] Eosinophils/100 WBC (Bld) 2.3 % Normal 0-5 [facility] Comment on above: Performed By: #### L 500.4050, L100.0100, L500.4100, L501.9910 #### [facility] [address] [place], [address] Erythrocyte distribution width (RBC) [Ratio] 12.8 % Normal 11.6-14.6 [facility] Comment on above: Performed By: #### L 500.4050, L100.0100, L500.4100, L501.9910 #### [facility] [address] [place], [address] Hematocrit (Bld) [Volume fraction] 45.3 % Normal 40-54 [facility] Comment on above: Performed By: #### L 500.4050, L100.0100, L500.4100, L501.9910 #### [facility] [address] [place], [address] Hemoglobin (Bld) [Mass/Vol] 15.4 g/dL Normal 13.0-16.5 [facility] Comment on above: Performed By: #### L 500.4050, L100.0100, L500.4100, L501.9910 #### [facility] [address] [place], [address] IG% 0.400 Normal 0.0-0.9 [facility] Comment on above: Result Comment: IG% - Immature Granulocytes (promyelocytes, myelocytes and metamyelocytes) > 1% indicates that a LEFT SHIFT is Present. Performed By: #### L 500.4050, L100.0100, L500.4100, L501.9910 #### [facility] [address] [place], [address] Lymphocytes/100 WBC (Bld) 33.1 % Normal 19-41 [facility] Comment on above: Performed By: #### L 500.4050, L100.0100, L500.4100, L501.9910 #### [facility] [address] [place], [address] MCH (RBC) [Entitic mass] 32.1 pg High 27.0-32.0 [facility] Comment on above: Performed By: #### L 500.4050, L100.0100, L500.4100, L501.9910 #### [facility] [address] [place], [address] MCHC (RBC) [Mass/Vol] 34.0 g/dL Normal 32-36 [facility] Comment on above: Performed By: #### L 500.4050, L100.0100, L500.4100, L501.9910 #### [facility] [address] [place], [address] MCV (RBC) [Entitic vol] 94.4 fL High 80-94 [facility] Comment on above: Performed By: #### L 500.4050, L100.0100, L500.4100, L501.9910 #### [facility] [address] [place], [address] Monocytes/100 WBC (Bld) 13.3 % High 0-10 [facility] Comment on above: Performed By: #### L 500.4050, L100.0100, L500.4100, L501.9910 #### [facility] [address] [place], [address] Neutrophils/100 WBC (Bld) 49.9 % Normal 47-70 [facility] Comment on above: Performed By: #### L 500.4050, L100.0100, L500.4100, L501.9910 #### [facility] [address] [place], [address] Nucleated RBC (Bld) [#/Vol] 0 10*3/uL Normal 0-5 [facility] Comment on above: Performed By: #### L 500.4050, L100.0100, L500.4100, L501.9910 #### [facility] [address] [place], [address] Platelet mean volume (Bld) [Entitic vol] 11.5 fL Normal 6.2-12.0 [facility] Comment on above: Performed By: #### L 500.4050, L100.0100, L500.4100, L501.9910 #### [facility] [address] [place], [address] Platelets (Bld) [#/Vol] 231 10*3/uL Normal 150-450 [facility] Comment on above: Performed By: #### L 500.4050, L100.0100, L500.4100, L501.9910 #### [facility] [address] [place], [address] RBC (Bld) [#/Vol] 4.80 10*6/uL Normal 4.6-6.[address] [facility] Comment on above: Performed By: #### L 500.4050, L100.0100, L500.4100, L501.9910 #### [facility] [address] [place], [address] RDW SD 44.4 fl High 35.1-43.9 [facility] Comment on above: Performed By: #### L 500.4050, L100.0100, L500.4100, L501.9910 #### [facility] [address] [place], [address] WBC (Bld) [#/Vol] 5.3 10*3/uL Normal 4.4-11.0 [facility] Comment on above: Performed By: #### L 500.4050, L100.0100, L500.4100, L501.9910 #### [facility] [address] [place], [address] Comprehensive Metabolic Prof ilon 08-03-2024 Albumin [Mass/Vol] 3.6 g/dL Normal 3.2-5.0 [facility] Comment on above: Performed By: #### L 500.4050, L100.0100, L500.4100, L501.9910 #### [facility] [address] [place], [address] Albumin/Globulin [Mass ratio] 1.0 {ratio} Normal 0.9-2.4 [facility] Comment on above: Performed By: #### L 500.4050, L100.0100, L500.4100, L501.9910 #### [facility] [address] [place], [address] ALK P 61 U/L Normal 45-117 [facility] Comment on above: Performed By: #### L 500.4050, L100.0100, L500.4100, L501.9910 #### [facility] [address] [place], [address] ALT [Catalytic activity/Vol] 25 U/L Normal 16-61 [facility] Comment on above: Performed By: #### L 500.4050, L100.0100, L500.4100, L501.9910 #### [facility] [address] [place], [address] AST [Catalytic activity/Vol] 18 U/L Normal 15-37 [facility] Comment on above: Performed By: #### L 500.4050, L100.0100, L500.4100, L501.9910 #### [facility] [address] [place], [address] Bilirubin [Mass/Vol] 0.70 mg/dL Normal 0.20-1.00 [facility] Comment on above: Result Comment: For patients on eltrombopag therapy, use of Dimension Gordon TBIL is not recommended. Performed By: #### L 500.4050, L100.0100, L500.4100, L501.9910 #### [facility] [address] [place], [address] BUN/CRE 13.6 RATIO Normal 10-20 [facility] Comment on above: Performed By: #### L 500.4050, L100.0100, L500.4100, L501.9910 #### [facility] [address] [place], [address] CA,Total 8.9 mg/dL Normal 8.5-10.1 [facility] Comment on above: Performed By: #### L 500.4050, L100.0100, L500.4100, L501.9910 #### [facility] [address] [place], [address] Chloride [Moles/Vol] 107 mmol/L Normal 98-107 [facility] Comment on above: Performed By: #### L 500.4050, L100.0100, L500.4100, L501.9910 #### [facility] [address] [place], [address] CO2 [Moles/Vol] 27.0 mmol/L Normal 21.0-32.0 [facility] Comment on above: Performed By: #### L 500.4050, L100.0100, L500.4100, L501.9910 #### [facility] [address] [place], [address] Creatinine [Mass/Vol] 1.03 mg/dL Normal 0.70-1.30 [facility] Comment on above: Result Comment: The validity of the calculated GFR GFRAA in patients over 70 years has not been determined. Clinical correlation is essential. Performed By: #### L 500.4050, L100.0100, L500.4100, L501.9910 #### [facility] [address] [place], [address] EST GFR - AA 95 mL/min Normal >60 [facility] Comment on above: Result Comment: Afri can Samoan GFR Calc Performed By: #### L 500.4050, L100.0100, L500.4100, L501.9910 #### [facility] [address] [place], [address] GAP 6 Normal 5-15 [facility] Comment on above: Performed By: #### L 500.4050, L100.0100, L500.4100, L501.9910 #### [facility] [address] [place], [address] GFR/1.73 sq M.predicted among non-blacks MDRD (S/P/Bld) [Vol rate/Area] 78 mL/min/{1.73_m2} Normal >60 [facility] Comment on above: Result Comment: Non- GFR Calc Performed By: #### L 500.4050, L100.0100, L500.4100, L501.9910 #### [facility] [address] [place], [address] Globulin (S) [Mass/Vol] 3.5 g/dL Normal 2.2-4.2 [facility] Comment on above: Performed By: #### L 500.4050, L100.0100, L500.4100, L501.9910 #### [facility] [address] [place], [address] Glucose [Mass/Vol] 120 mg/dL High 74-106 [facility] Comment on above: Result Comment: Fast ing Glucose result from 100 to 125 mg/dL suggests IMPAIRED HOMEOSTASIS per A.D.A. criteria. Performed By: #### L 500.4050, L100.0100, L500.4100, L501.9910 #### [facility] [address] [place], [address] Potassium [Moles/Vol] 4.0 mmol/L Normal 3.5-5.1 [facility] Comment on above: Performed By: #### L 500.4050, L100.0100, L500.4100, L501.9910 #### [facility] [address] [place], [address] Sodium [Moles/Vol] 140 mmol/L Normal 136-145 [facility] Comment on above: Performed By: #### L 500.4050, L100.0100, L500.4100, L501.9910 #### [facility] [address] [place], [address] T PROT 7.1 g/dL Normal 6.4-8.2 [facility] Comment on above: Performed By: #### L 500.4050, L100.0100, L500.4100, L501.9910 #### [facility] [address] [place], [address] Urea nitrogen [Mass/Vol] 14 mg/dL Normal 7-18 [facility] Comment on above: Performed By: #### L 500.4050, L100.0100, L500.4100, L501.9910 #### [facility] [address] [place], [address] Lipid Profileon 08-03-2024 Cholesterol [Mass/Vol] 238 mg/dL High 200 [facility] Comment on above: Result Comment: <200 mg/dL Desirable 200-240 mg/dL Borderline >240 mg/dL High Risk Performed By: #### L 500.4050, L100.0100, L500.4100, L501.9910 #### [facility] [address] [place], [address] Cholesterol in HDL [Mass/Vol] 37 mg/dL Low [facility] Comment on above: Result Comment: The drugs N-Acetylcysteine and Metamizole may falsely depress this assay. Reference Range HDL <40 mg/dL Low HDL Cholesterol HDL >or= 60 mg/dL High HDL Cholesterol Performed By: #### L 500.4050, L100.0100, L500.4100, L501.9910 #### [facility] [address] [place], [address] Cholesterol in LDL [Mass/Vol] 164 mg/dL High 0-130 [facility] Comment on above: Performed By: #### L 500.4050, L100.0100, L500.4100, L501.9910 #### [facility] [address] [place], [address] Cholesterol in VLDL [Mass/Vol] 37 mg/dL Normal 5-40 [facility] Comment on above: Performed By: #### L 500.4050, L100.0100, L500.4100, L501.9910 #### [facility] [address] [place], [address] Triglyceride [Mass/Vol] 184 mg/dL Normal [facility] Comment on above: Result Comment: The drugs N-Acetylcysteine and Metamizole may falsely depress this assay. Serum Triglycerides Reference Interval Normal <150 mg/dL Borderline high 150 - 199 mg/dL High 200 - 499 mg/dL Very High > or = 500 mg/dL Performed By: #### L 500.4050, L100.0100, L500.4100, L501.9910 #### [facility] [address] [place], [address] PSA,Total - Annual Screenon 08-03-2024 PSA,TOT SCREEN 1.48 ng/mL Normal 0.00-4.00 [facility] Comment on above: Result Comment: This test was performed using the TPSA assay method for the [employer]zella chemistry system. Values obtained with different assay methods cannot be used interchangably. When changing PSA assays in the course of monitoring a patient, additional sequential testing should be carried out to confirm baseline values. Performed By: #### L 500.4050, L100.0100, L500.4100, L501.9910 #### [facility] [address] [place], [address] No Panel Informationon 02-21 Endomysial IgA Antibody Negative Negative [facility] Work Phone: Serum IgA measurement (units /volume)on 02-21-2022 IgA Qn (S) 469 mg/dL [facility] Work Phone: Comment on above: Performed at: [address] [id number] Director: Yonathan Francis PhD, Phone: [phone] Serum tissue transglutaminas e IgA antibody assay (units/volume)on 02-21-2022 tTG IgA Qn (S) <2 U/mL [facility] Work Phone: Comment on above: Negative 0 - 3 Weak Positive 4 - 10 Positive >10 Tissue Transglutaminase (tTG) has been identified as the endomysial antigen. Studies have demonstr- ated that endomysial IgA antibodies have over 99% specificity for gluten sensitive enteropathy. Final Surgical Pathology Rep [facility] 10-01-2017 Final Surgical Pathology Report . Pathology ReportsAccession: Collected Date/Time: Received Date/Time: Pathologist:[id number] 09/29/2017 09:33 EST 09/30/2017 09:34 MD TORIBIO LEAL Final Surgical Pathology ReportDIAGNOSIS:LEFT SHOULDER, SHAVE BIOPSY -- DERMATOFIBROMA.Comment:A lthough this is a benign lesion, it has been incompletely excised.COMMENT:AOH - D# [id number] INFORMATION:NEOPLASM OF UNCERTAIN BEHAVIORSPECIMEN:A SKIN - LEFT SHOULDERGROSS DESCRIPTION:_Received in formalin labeled with the patient's name is a 1.0 x 0.7 x 0.2 cm cantu irregularly shaped skin. The surface is vaguely irregular. No orientation is given. The specimen is inked, sectioned, and entirely submitted in one cassette.Dictated by MOISES MCKINNEY ([facility])MICROSCOPIC DESCRIPTION:Slides reviewed.Electronically Signed byPathology Report verified by [facility] Hospital[facility]ronically signed by TORIBIO DEL TORO MDSign out Date: 10/01/2017 18:42Performing Lab: [facility], [address] [place] [id number] [place] [address] ([place]) Comment on above: Performed By: #### S PFR ####[address] [address] Encounters Encounter Date Encounter Type Care Provider Facility Start: 06-12-2025 ambulatory Evangelina Mimis Facility: [facility] Start: 05-31-2025 Encounter for genera l adult medical examination without abnormal findings Evangelina Abdul [facility] Start: 05-25-2025 End: 05-25-[address] Evangelina Abdul MD Work Phone: [facility] Start: 05-25-2025 End: 05-25-[address] Evangelina Abdul MD [facility] [place] Work Phone: Start: 05-25-2025 End: 05-25-2025 [facility] Start: 05-11-2025 ambulatory [facility] Facility: [facility] Start: 08-03-2024 End: 08-03-2024 ambulatory [facility] Facility:[facility] Start: 01-21-2024 Non-patient / Non-visit Dr. Quinton Abdul Work Phone: [facility] Start: 01-21-2024 End: 01-21-[address] Evangelina Abdul Work Phone: [facility] Work Phone: Start: 01-21-2024 End: 01-21-[address] Evangelina Abdul Work Phone: [facility] Work Phone: Start: 02-21-2022 End: 02-21-2022 Patient encounter procedure [facility] Start: 09-29-2017 End: 10-04-2017 Ambulatory [facility] Facility:[facility] Payers Date Payer Category Payer Self-pay [id number] 2024 Self-pay [id number] 2017 Unknown [id number] 2017 Unknown [id number] Unknown [facility] [id number] Unknown [employer] [id number] Unknown [id number] [id number] [id number] Unknown [id number] [id number] Unknown [id number] [id number] [id number] Unknown [id number] [id number] [id number] Social History Date Type Detail Facility Start: 03-31-2021 End: 08-16-2022 Tobacco smoking status NHIS Unknown if ever smoked [facility] Start: 1965 Sex Assigned At Male [facility] Start: 08-16-2022 Tobacco smoking stat us NHIS Never smoked tobacco (finding) [facility] Evaluation note Note Date & Type Note Facility Evaluation note No assessment information availa ble [facility] Work Phone: Reason for referral (narrative) Note Date & Type Note Facility Reason for referral (narrative) No reason for referral information available [facility] Work Phone: Summary Purpose Family History No Family History Records FoundNo Family History Records Found Advance Directives No Advanced Directives Records FoundNo Advanced Directives Records Found Chief Complaint and Reason for Visit Chief Complaint PVD Additional Source Comments (unrecognized sect ion and content) No Status Records FoundNo Status Records Found INFORMATION SOURCE (unrecogn ized section and content) DATE CREATED AUTHOR 03/16/2018 [facility] ([place]) DATE CREATED AUTHOR AUTHOR'S ORGANIZ ATION 06/12/2025 [facility] Goals (unrecognized section and content) Goals may be documented in a n alternate sectionGoals may be documented in an alternate sectionGoals may be documented in an alternate section Care Teams (unrecognized sec tion and content) Team Status: Active Member Role Status Dates Dr. Evangelina Abdul MD Family Provider Active Dr. Evangelina Abdul MD Primary Care Provider Active Team Status: Active Member Role Status Dates Dr. Evangelina Abdul MD Primary Care Provider, Referrin g Provider Active Dr. Patel Liriano MD Attending Provider Active Team Status: Inactive Member Role Status Dates Dr. Evangelina Abdul MD Primary Care Prov ider, Attending Provider, Referring Provider Active Team Status: Active Member Role/Relationship Status Dates Dr. Evangelina Abdul MD Primary Care Provider Active Team Status: Inactive Member Role/Relationship Status Dates Dr. Evangelina Abdul MD Primary Care Provider Active Start: May 25, 2025 End: May 25, 2025 Dr. Evangelina Abdul MD Attending Provider Active Start: May 25, 2025 End: May 25, 2025 Dr. Evangelina Abdul MD Referring Provider Active Start: May 25, 2025 End: May 25, 2025 FOR RECORDS PERTAINING TO PATIENTS WHO ARE OR HAVE BEEN ENROLLED IN A CHEMICAL DEPENDENCY/SUBSTANCEABUSE PROGRAM, SOME INFORMATION MAY BE OMITTED. This clinical summary was aggregated from multiple sources. Caution should be exercised in using it in the provision of clinical care. This summary normalizes information from multiple sources, and as a consequence, information in this document may materially change the coding, format and clinical context of patient data. In addition, data may be omitted in some cases. CLINICAL DECISIONS SHOULD BE BASED ON THE PRIMARY CLINICAL RECORDS. [facility]. provides no warranty or guarantee of the accuracy or completeness of information in this document.
--- NOTE | 2025-09-07 11:09 | STRESSREP_ITS ---
Stress Test Report Date: 09/07/2025 Procedure: Pharmacologic stress nuclear imaging study Indications: Coronary artery disease Consent: Per the patient Procedure: The patient underwent pharmacologic (Regadenoson 0.4mg ) evaluation with a peak heart rate of 93 beats per minute (58%predicted maximal heart rate) and a peak blood pressure of 128/72 mmHg. The baseline ECG demonstrated sinus rhythm with LVH with strain pattern. The peak pharmacologic ECG was nondiagnostic secondary to baseline abnormalities. There were no cardiac dysrhythmias pretest, during pharmacologic infusion, or recovery. There was no complaint of chest discomfort during pharmacologic infusion or recovery. The patient was injected with 13.1 millicuries of technetium 99m Cardiolite and subsequently rest SPECT Cardiolite nuclear imaging was obtained in the horizontal long, vertical long, and short axis views. The patient underwent pharmacologic (Regadenoson) evaluation. The patient was injected with 40.6 millicuries of technetium 99m Cardiolite and subsequently stress SPECT Cardiolite nuclear imaging was obtained in the horizontal long, vertical long, and short axis views. A gated Cardiolite study at peak stress was obtained. The examination was stopped secondary to completion of protocol. Rest and stress SPECT Cardiolite nuclear imaging status post realignment, normalization, and attenuation correction demonstrate no fixed or reversible perfusion abnormalities. There is end systolic thickening and brightening. The gated Cardiolite study demonstrates myocardial thickening and inward wall motion. The reported LVEF is 60%. Impression: 1. Pharmacologic (Regadenoson) evaluation 2. Peak pharmacologic ECG was nondiagnostic secondary to baseline abnormalities. 3. There were no cardiac dysrhythmias pretest, during pharmacologic infusion, or recovery. 5. Rest and stress SPECT Cardiolite nuclear imaging demonstrate relative uniform tracer uptake and myocardial perfusion appearing within normal limits. 6. The gated Cardiolite study reports an LVEF of 60%. This note was generated with [employer] software. It may contain incorrect words, spelling, and punctuation that were not noted in checking the note before signing.
== END | disposition home or self-care (01) ==
PROVIDERS: PCP Family Medicine; Referring Provider Internal Medicine Cardiovascular Disease; Visit Provider Internal Medicine Cardiovascular Disease
DX: R94.31 Abnormal electrocardiogram [ECG] [EKG] (principal); I42.2 Other hypertrophic cardiomyopathy; R93.89 Abnormal findings on diagnostic imaging of other specified body structures; I25.10 Atherosclerotic heart disease of native coronary artery without angina pectoris; E78.5 Hyperlipidemia, unspecified; K21.9 Gastro-esophageal reflux disease without esophagitis
CPT/HCPCS: 78452; 93017; 93306; A9500; A4216; J2785